=== PATIENT | male | born 1930 | race Caucasian/White ===

== ENCOUNTER 2017-09-19 06:09 | Emergency (ER) | payer OTHER ==
[2017-09-19 06:20] VITALS: BP 130/63; BMI 21.6
[2017-09-19] MEDS ORDERED: TORADOL 60 MG VIAL IM ONE (06:39)
--- NOTE | 2017-09-19 06:39 | DR.GENAD ---
HPI - PCP Primary Care Physician: LISSET - HPI Comment HPI Comment: NO TRAUMA, FEVER OR DYSURIA. - Complaint/Symptoms Chief Complaint Doctors Comments: RIGHT HIP PAIN WITH SWELLING. Chief Complaint:: "I HAVE A KNOT THAT HAS COME UP ON MY RIGHT HIP AREA LAST NIGHT, AND NOW I AM HAVING TROUBLE WALKING. I CAN'T WALK. I HAVE BEEN HAVING TROUBLE WITH THIS HIP, JUST THOUGHT IT WAS ARTHRITIS." - Nurses notes reviewed Nurses Notes Review: Yes - Source History Provided: Patient, Significant Other - Mode of Arrival Mode of Arrival: Wheelchair - Timing Onset of Chief Complaint: 09/18/17 Came on: Suddenly - Duration Duration: Constant Duration: Days - Severity Severity: Moderate PMH - PMH Past Medical History: Yes Past Medical History: Arthritis, Dyslipidemia, Hypothyroidism, Kidney Stones, [place] Past Surgical History: Yes Surgical History: Angioplasty/Stents, Appendectomy, Lithotripsy - Family History History of Family Medical Conditions: No - Social History Type of Tobacco Use: None Alcohol Use: None Do you use any recreational Drugs:: No Lives With: Spouse Lives Where: Home - infectious screening Have you traveled outside the country in the last 6 months?: No Isolation: Standard ROS - Review of Systems Constitutional: No Symptoms Reported Eyes: No Symptoms Reported ENTM: Hearing Loss (DECREASE HEARING LT EAR.) Respiratoy: negative: Productive Cough, Short of Breath, Wheezing Cardiovascular: negative: Chest Pain Gastrointestinal/Abdominal: negative: Abdominal Pain, Diarrhea, Nausea Genitourinary: negative: Dysuria, Frequency, Hematuria Neurological: No Symptoms Reported Musculoskeletal: Muscle Pain Integumentary: No Symptoms Reported Hematologic/Lymphatic: No Symptoms Reported Endocrine: No Symptoms Reported All Other Systems: Reviewed and Negative PE - Vital Signs Vitals: Temperature 98.9 F Pulse Rate 75 Respiratory Rate 18 Blood Pressure 130/63 O2 Sat by Pulse Oximetry 99 - General Limitations: No Limitations, Other (DECREASE HEARING.) General Appearance: Alert - Head Head Exam: Normal Inspection - Eyes Eye exam: Normal Appearance - ENT ENT Exam: Normal External Ear Exam External Ear Exam: Normal External Inspection TM/Canal Exam: Bilateral Normal Nose Exam: Normal Nose Exam Mouth Exam: Normal Inspection Throat Exam: Normal Inspection - Neck Neck Exam: Trachea Midline - Chest Chest Inspection: Symmetric Chest Wall Rise - Respiratory Respiratory Exam: Normal Lung Sounds Bilat Respiratory Exam: Bilateral Clear to Auscultation - Cardiovascular Cardiovascular Exam: Regular Rate, Normal Rhythm, Normal Heart Sounds - Abdominal Exam Abdominal Exam: Normal Bowel Sounds, Soft. negative: Tenderness - Extremities Extremities Exam: Tenderness (LATERAL RT HIP TENDER, ILL DEFINE SWELLING PRESENT.IT IS TENDER. ROM INTAC WITH DISCOMFORT.) MDM - Additional Information Additional Information Obtained From: Family - Differential Diagnosis Differential Diagnosis: TRONCHANTERIC BURSITIS Course - Treatment Treatment: SEE ORDERS. IM MED IN ED FOR PAIN. - Reevaluation 1st: Improved - Education/Counseling Education/Counseling: Patient, Family, Education Educated On: Treatment, Diagnosis, Needs for Follow Up ROR - XRAY XRAY Interpreted by: Radiologist XRAY Findings: REPORT DISCUSS WITH PATIENT. - Diagnosis Discharge Problem: Trochanteric bursitis Qualifiers: Laterality: right Qualified Code(s): M70.61 - Trochanteric bursitis, right hip - Discharge Plan Condition: Stable Prescriptions: Cyclobenzaprine HCl [FLEXERIL 10 MG *] 10 mg PO BID PRN 15 Days #40 tab PRN Reason: Meloxicam [Mobic] 7.5 mg PO DAILY #15 tablet - Follow ups/Referrals Follow ups/Referrals: Raghavendra Bullard [Primary Care Provider] - 3 days - Instructions Instructions: Trochanteric Bursitis With Rehab-SportsMed Additional Instructions: RETURN TO ED IF WORSE.
[2017-09-19] MEDS ORDERED: TORADOL 60 MG VIAL ONE (06:40)
--- NOTE | 2017-09-19 07:31 | RAD ---
HISTORY: Right hip mass, difficulty ambulating Study: Right hip AP, frog-leg, AP pelvis Comparison: None Findings: The pelvic bones and SI joints are intact. The right hip joint is intact. No joint erosions are noted . No fracture, lytic, or blastic lesion is identified. There is some nonspecific soft tissue calcific ations adjacent to the greater trochanter. IMPRESSION: No significant abnormality identified Reported By:
== END 2017-09-19 08:05 | disposition home or self-care (01) ==
LOC: ER 06:09
DX: M70.61 Trochanteric bursitis, right hip (principal)
CPT/HCPCS: 73501; 96372; 99282; 99284; J1885